=== PATIENT | female | born 1975 | race African-American/Black ===

== ENCOUNTER 2025-04-30 09:06 | Emergency (ER) | payer MEDICAID, OTHER ==
[~2025-04-30] VITALS: Ht 170.2 cm; Wt 118.0 kg
[~2025-04-30 09:06] MED LIST: IBUPROFEN
[2025-04-30 09:13] VITALS: O2SAT 97
[2025-04-30 10:25] LABS: BASOPHILS % 1.1 % (0.0-2.0); EOSINOPHILS % 4.4 % (0.0-5.0); HEMATOCRIT. 37.2 % (36.0-48.0); HEMOGLOBIN. 12.2 g/dL (12.0-16.0); LYMPHOCYTES % 41.3 % (20.0-50.0); MEAN PLATELET VOLUME 9.2 fl (7.4-10.4); MONOCYTES % 6.8 % (2.0-8.0); NEUTROPHILS % 46.4 % (40.0-76.0); PLATELET 265 x1000/uL (130-400); RED BLOOD CELL COUNT 4.21 mill/uL (4.2-5.4); RED CELL DISTRIBUTION WIDTH 14.9 % (11.6-14.6)
[2025-04-30 10:41] LABS: CREATININE 0.9 mg/dL (0.6-1.0)
[2025-04-30 10:42] LABS: TROPONIN I HIGH SENSITIVITY < 4 ng/L (3.0-34); UREA NITROGEN BLOOD 7 mg/dL (9-23)
[2025-04-30 10:43] LABS: ASPARTATE AMINOTRANSFERASE 17 IU/L (<34)
[2025-04-30 10:44] LABS: BILIRUBIN DIRECT < 0.1 mg/dL (<=3.0); BILIRUBIN TOTAL 0.4 mg/dL (0.1-1.0); PROTEIN TOTAL 7.2 g/dL (6.0-8.3)
[2025-04-30 12:29] LABS: HCG SCREEN NEGATIVE
[2025-04-30 13:57] VITALS: BP 118/75; PULSE 70; RESP 16; TEMP 36.6; O2SAT 100
[2025-04-30 14:26] LABS: CLARITY URINE CLEAR (CLEAR); COLOR URINE YELLOW (YELLOW); GLUCOSE URINE NEGATIVE (NEGATIVE); KETONES URINE NEGATIVE (NEGATIVE); LEUKOCYTE ESTERASE URINE 1+ (NEGATIVE); NITRITE URINE NEGATIVE (NEGATIVE); OCCULT BLOOD URINE NEGATIVE (NEGATIVE); PH URINE 6.5 (4.5-8.0); PROTEIN URINE NEGATIVE (NEGATIVE); SPECIFIC GRAVITY URINE 1.013 (1.005-1.030); UROBILINOGEN URINE 0.2 E.U./dL (0.2-1.0)
[2025-04-30 14:38] LABS: BACTERIA URINE 3+; RBC URINE 0-2 /hpf (0-2); SQUAMOUS EPITHELIAL CELL URINE 2+ /lpf (RARE/1+); YEAST URINE NONE SEEN
[2025-04-30] MEDS ORDERED: IOHEXOL-300 100 ML BOTTLE ONE (23:19)
== END 2025-04-30 14:14 | disposition home or self-care (01) ==
LOC: ER 09:06 → EDBEDREQ 09:27 → ER 14:14 → CANBEDREQ 17:13
DX: R10.13 Epigastric pain (principal); G35 Multiple sclerosis; Z98.890 Other specified postprocedural states; Z79.899 Other long term (current) drug therapy
CPT/HCPCS: 99285; 74177; 80076; 80048; 81003; 84703; 83605; 83690; 83735; 85025; 84484; 36415; 93005; Q9967